=== PATIENT | male | born 1985 ===

== ENCOUNTER 2024-05-15 19:19 | Emergency (ER) | payer SELFPAY ==
[~2024-05-15] VITALS: Ht 165.1 cm; Wt 79.5 kg
[2024-05-15 19:25] VITALS: BP 136/94; PULSE 104; RESP 18; TEMP 97.5; O2SAT 99
[2024-05-15] MEDS: BACITRACIN 0.9 GM PACKET OINTMENT TP ONE (20:46)
[2024-05-15] MEDS: PERTUSS(ACELL),DIPH,TET/PF 0.5 ML SYRINGE [ADULT] IM. ONE (20:46)
== END 2024-05-15 22:01 | disposition home or self-care (01) ==
LOC: EMS 19:19
DX: S01.01XA Laceration without foreign body of scalp, initial encounter (principal); F10.129 Alcohol abuse with intoxication, unspecified; X58.XXXA Exposure to other specified factors, initial encounter; Y93.89 Activity, other specified; Y92.89 Other specified places as the place of occurrence of the external cause; Y99.8 Other external cause status
CPT/HCPCS: 12002; 70450; 72125; 90471; 90715; 99285